=== PATIENT | male | born 1965 | race Two or more races ===

== ENCOUNTER 2020-02-02 15:25 | Emergency (ER) | payer OTHER ==
[~2020-02-02] VITALS: Ht 165.1 cm; Wt 81.6 kg
[2020-02-02 15:37] VITALS: BP 162/94
[2020-02-02] MEDS ORDERED: LIDOCAINE 1% HCL (LOCAL ANESTH.) INJ 20ML MDV IJ ONE (17:15)
[2020-02-02] MEDS ORDERED: TETANUS-DIPTH-ACEL PERTUSSIS 0.5ML SYR Tdap IM ONE (17:45)
== END 2020-02-02 18:31 | disposition home or self-care (01) ==
LOC: ER 15:25
DX: S61.412A Laceration without foreign body of left hand, initial encounter (principal); W26.0XXA Contact with knife, initial encounter; Y93.89 Activity, other specified; Y92.89 Other specified places as the place of occurrence of the external cause; Y99.8 Other external cause status
CPT/HCPCS: 12002; 73130; 90471; 90715; 99283; J2001

== ENCOUNTER 2020-04-12 09:41 | Emergency (ER) | payer OTHER ==
[~2020-04-12] VITALS: Ht 165.1 cm; Wt 81.6 kg
[2020-04-12 11:38] LABS: Basophils # (auto) 0.1 10 ^3/uL (0-0.2); Basophils % (auto) 0.7 % (0.0-2.0); Eosinophils # (auto) 0.1 10 ^3/uL (0-0.8); Hematocrit 49.9 % (41.0-53.0); Hemoglobin 16.3 g/dL (13.5-17.5); Lymphocytes # (auto) 1.8 10 ^3/uL (0.4-5.4); Lymphocytes % (auto) 25.5 % (10.0-50.0); Mean Corpuscular Hgb Conc. 32.6 g/dL (32.0-36.0); Mean Corpuscular Volume 88.9 fL (80.0-100.0); Monocytes # (auto) 0.5 10 ^3/uL (0-1.3); Monocytes % (auto) 7.5 % (0.0-12.0); Neutrophils # (auto) 4.7 10 ^3/uL (1.6-8.6); Neutrophils % (auto) 65.3 % (37.0-80.0); Nucleated Red Blood Cells % 0.1 %; Platelet Count (auto) 222 10^3/uL (140-450); Red Blood Cells 5.61 10^6/uL (4.5-5.90); Red Cell Distribution Width 13.3 % (11.8-14.3); White Blood Cell 7.2 10^3/uL (4.4-10.8)
[2020-04-12 11:55] LABS: Anion Gap 2 (5-15); Blood Urea Nitrogen 12 mg/dL (7-18); Calcium 8.9 mg/dL (8.5-10.1); Carbon Dioxide 29 mmol/L (21-32); Chloride 106 mmol/L (98-107); Glucose 105 mg/dL (74-106); Potassium 3.9 mmol/L (3.5-5.1); Sodium 137 mmol/L (136-145)
[2020-04-12 12:02] LABS: Alanine Aminotransferase 46 U/L (16-61); Alkaline Phosphatase 65 U/L (45-117); Aspartate Aminotransferase 28 U/L (15-37); Bilirubin, Total 0.8 mg/dL (0.2-1.0); GFR African American 110 mL/min; GFR Non-African American 91 mL/min
[2020-04-12 13:40] LABS: INR 1.01 (0.9-1.15); Partial Thromboplastin Time 26.5 sec (23.0-31.2)
[2020-04-12 13:52] VITALS: BP 147/98
== END 2020-04-12 13:55 | disposition home or self-care (01) ==
LOC: ER 09:41
DX: R07.89 Other chest pain (principal); R42 Dizziness and giddiness
CPT/HCPCS: 36415; 70450; 71046; 80053; 84484; 85025; 85610; 85730; 93005